=== PATIENT | female | born 1970 | race Caucasian/White ===

== ENCOUNTER 2017-01-28 13:15 | Emergency (ER) | payer MEDICAID ==
[~2017-01-28] VITALS: Ht 162.6 cm; Wt 82.5 kg
[~2017-01-28 13:15] MED LIST: ACYC800T PO; LEVAHFA IH; LORA10TA7 PO
[2017-01-28] MEDS ORDERED: METF500T4 PO (13:49)
[2017-01-28 13:57] LABS: GLUCOSE,POINT OF CARE 101 MG/DL (70-110)
[2017-01-28 15:18] VITALS: BP 118/88
[2017-01-28] MEDS ORDERED: CYCLOBENZAPRINE HCL 10 MG TABLET PO ONE (15:45)
[2017-01-28] MEDS ORDERED: KETOROLAC TROMETHAMINE 60 MG/2 ML VIAL IM ONE (15:45)
== END 2017-01-28 17:34 | disposition home or self-care (01) ==
LOC: EMS 13:17
DX: S43.401A Unspecified sprain of right shoulder joint, initial encounter (principal); J45.909 Unspecified asthma, uncomplicated; E11.9 Type 2 diabetes mellitus without complications; X58.XXXA Exposure to other specified factors, initial encounter; Y93.89 Activity, other specified; Y92.89 Other specified places as the place of occurrence of the external cause; Y99.8 Other external cause status
CPT/HCPCS: 29105; 73030; 82962; 96372; 99284; J1885